=== PATIENT | male | born 2000 ===

== ENCOUNTER 2025-03-27 12:35 | Outpatient (AMB) | payer OTHER, SELFPAY ==
--- NOTE | 2025-03-27 13:09 | A.OFFVIS_ITS ---
Intake Visit Reasons: f/u after AMB EEG Allergies No Known Allergies (No Known Allergies*) Allergy (Unverified 01/25/20 19:53) HPI Comments Details: 23 yo man who probably has secondarily generalized seizure disorder (In 2019, he had two unexplained episodes of fainting and one seizure in ER after which he was started on Keppra). He is presenting for a routine neurology follow-up. He reports no recent seizure episodes and has been feeling better since implementing lifestyle changes, including diet modification and running, which he started about a week ago. The patient is adherent with his medication and recently changed his administration time from bedtime to 6:00 AM. He is not currently established with a primary care physician but intends to schedule an appointment. The patient has not had any recent blood tests. [facility] Medical History (Updated 03/27/25 @ 13:12 by Paul Lu MD) Epilepsy Review of Systems Narrative - General: Reports feeling better. - Neurological: Denies any recent seizure episodes. - Psychiatric: Reports improved mental well-being with recent lifestyle changes. Physical Exam Neuro Other: Mental Status: Alert and oriented to person, place, and time. Normal attention. Normal spontaneous speech, fluency, and comprehension. Cranial Nerves: CN II: Visual ruiz full to confrontation, visual acuity intact. CN III, IV, : Pupils equal, round, reactive to light and accommodation. Extraocular movements are normal. CN V: Facial sensation is normal. CN VII: Facial movements symmetrical. CN VIII: Hearing intact to bedside conversation is normal. CN IX, X: Palate elevates symmetrically. CN XI: Shoulder shrug and head turn symmetrical. CN XII: Tongue midline without atrophy or fasciculations. Motor: Bulk and tone normal in all extremities. No significant muscle weakness in arms and legs. No drift. Coordination: [id number] and [id number] testing normal. No dysmetria. Gait and Station: No obvious gait abnormality. No ataxia or instability. Extrapyramidal: Full facial expressions and blinking. No rigidity. Movements are appropriate with no tremor or abnormality. Speech: Normal; no dysarthria or tremor. Assessment & Plan Assessment & Plan (1) Epilepsy: Comment: CT brain WO at [facility] in Aug 2024: OK EEG at [facility] in Feb 2020: WNL EEG at office in Apr 2020: WNL CT brain WO at [facility] in Feb 2020: WNL MRI brain WWO at [facility] in Feb 2020: one tiny right frontal WM hyperintensity Code(s): G40.909 - Epilepsy, unspecified, not intractable, without status epilepticus Category: Medical Qualifiers: Epilepsy type: other Intractability: not intractable Status epilepticus: without status epilepticus Qualified Code(s): G40.802 - Other epilepsy, not intractable, without status epilepticus Plan Impression: Stable 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
--- OUTSIDE RECORDS SUMMARY | 2025-03-28 03:29 | XMS_ITS | Clinical Summary ---
Author Organization [facility] Address [address] [place] [address] Phone Care Team Providers Care Stone Trimmer Name Role Phone Physician, No Pcp Primary Care Provider Unavaila ble Allergies No known active allergies Medications No known medications Active Problems No known active problems Medical History Medical History Date Comments Seizures (CMS/[facility] V24, CMS/[facility] V28) Social History Tobacco Use Types Packs/Day Years Used Date Smoking Tobacco: Unknown Tobacco Cessation:Counseling Given: Not Answered Sex and Gender Information Value Date Recorded Sex Assigned at Male 08/13/2024 11:50 AM EDT Legal Sex Male 4:53 AM EST Gender Identity Male 08/13/2024 11:50 AM EDT Sexual Orientation Straight 08/13/2024 11 :50 AM EDT Obstetrics History Last Filed Vital Signs Vital Sign Reading Time Taken Comments Blood Pressure 105/51 08/13/2024 4:13 PM EDT Pulse 51 08/13/2024 4:13 PM EDT Temperature 36.9 C (98.4 F) 08/13/2024 1:45 PM EDT Respiratory Rate 20 08/13/2024 1:45 PM EDT Oxygen Saturation 97% 08/13/2024 1:45 PM EDT Inhaled Oxygen Concentration - - Weight 81.6 kg (180 lb) 08/13/2024 11:16 AM EDT Height 167.6 cm (5' 6 ) 08/13/2024 11:16 AM EDT Body Mass Index 29.05 08/13/2024 11:16 AM EDT Plan of Treatment Health Maintenance Due Date Last Done Comments Hepatitis B Vaccines (3 of 3 - 3-dose series) 05/12/2001 03/17/2001, 2000, 2000 HIV Screening 04/12/2022 Hepatitis C Screening 04/12/2022 Social Influencers of Health Screening 04/12/2022 Depression Screening 05/10/2024 COVID-19 Vaccine (2024- season) 2025 Influenza Vaccine (#1) 2025 0, 05/18/2018, 04/12/2017, Additional history exists DTaP,Tdap,and Td Vaccines (8 - Td or Tdap) 02/17/2030 02/18/2020, 11/25/2012, 04/22/2005, Additional history exists RSV Immunization Adult Patients (1 - 1-dose 75+ series) 2075 HIB Vaccines Completed 05/13/2001, 11/07, 2000, Additional history exists Pneumococcal Vaccine: Pediatrics (0 to 5 Years) and At-Risk Patients (6 to 49 Years) Completed 11/07/2001, 2000, 2000, Additional history exists IPV Vaccines Completed 04/22/2005, 11/07, 2000, Additional history exists MMR Vaccines Completed 04/22/2005, 05/13/2001 Varicella Vaccines Completed 11/25/2012, 05/13/2001 HPV Vaccines Completed 08/13/2014, 05/10, 11/25/2012 Meningococcal ACWY Vaccine Completed 04/12/2017, Hepatitis A Vaccines Completed 05/18/2018, 04/12/20 17 Meningococcal B Vaccine Aged Out No l onger eligible based on patient's age to complete this topic RSV Immunization Patients Under 20 months Aged Out No longer eligible based on patient's age to complete this topic Insurance [place] - [place] Care Teams Stone Trimmer Relationship Specialty Start Date End Date Physician, No Pcp PCP - General 08/13/24
== END 2025-03-27 13:22 | disposition home or self-care (01) ==
LOC: HO.HSM 12:35
PROVIDERS: Visit Provider Psychiatry & Neurology Neurology
DX: G40.802 Other epilepsy, not intractable, without status epilepticus (principal)
CPT/HCPCS: 99213